=== PATIENT | male | born 1995 ===

== ENCOUNTER → 2016-06-06 | Outpatient (CLI) | payer SELFPAY ==
--- NOTE | 2016-06-06 09:40 | RAD ---
Left ankle, 3 views, 06/06/2016: History: Ankle pain No fracture or dislocation is identified. There is minimal spurring at the ankle joint and at the talonavicular and calcaneocuboid articulations. The soft tissues are unremarkable. IMPRESSION: 1. Mild degenerative change. 2. No acute bony abnormality is detected.
== END | disposition home or self-care (01) ==
LOC: DXRADRC 08:07
PROVIDERS: ATTEND Physician Assistant Medical
DX: M25.572 Pain in left ankle and joints of left foot (principal)
CPT/HCPCS: 73610